=== PATIENT | male | born 1975 | race Caucasian/White ===

== ENCOUNTER 2017-01-30 09:40 | Emergency (ER) | payer OTHER ==
[~2017-01-30] VITALS: Ht 188 cm; Wt 95.3 kg
[2017-01-30 10:00] VITALS: BP 122/64
--- NOTE | 2017-01-30 10:39 | PHYS DOC ---
General Chief Complaint: SORE THROAT Stated Complaint: SORE THROAT, EAR PAIN Time Seen by MD: 10:12 Source: patient Exam Limitations: no limitations Problems: History of Present Illness Initial Comments Patient is a 41-year-old male who comes to the ED with sore throat. Patient states that he's had a severe sore throat for 2 days. He's had chills sweats and body aches and pain with swallowing no difficulty breathing no difficulty with swallowing. No known exposures with similar symptoms over-the- counter medications are not helping. She's been drinking well solid intake has been limited due to throat pain. Timing/Duration: gradual, other Severity: severe Location: throat Prearrival Treatment: over the counter meds Modifying Factors: worse with coughing, improves with other Associated Symptoms: fever, poor solids intake, sore throat Past Medical History Medical History: no pertinent history Surgical History: no surgical history Social History Smoker: non-smoker Alcohol: occasionally Drugs: none Constitutional: see HPI Ears: denies dizziness, denies pain Nose: denies clots, denies congestion Throat: see HPI, denies neck stiffness, denies difficulty with fluids Respiratory: denies cough, denies shortness of breath Cardiovascular: denies chest pain, denies palpitations Gastrointestinal: denies nausea, denies vomiting Physical Exam General Appearance: WD/WN, no apparent distress Eyes: bilateral eye normal inspection, bilateral eye PERRL, bilateral eye EOMI Nose: normal inspection Mouth/Throat: other (pharynx is beefy red with exudate airway is patent) Neck: lymphadenopathy (R), lymphadenopathy (L) Cardiovascular/Respiratory: normal peripheral pulses, normal breath sounds 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 Aggressive hydration with Gatorade or water. [id number] Tylenol and ibuprofen as needed. The penicillin injection he received in the emergency department should resolve your infection completely. Prescription: Lidocaine 2% viscous Follow-up at [place] in 5-7 days for recheck. Return to the ED with new or changing symptoms. NICHOLAS GARCIA DO Jan 30, 2017 10:39
[2017-01-30] MEDS ORDERED: LIDO:MAALOX 1:1 20 ML SINGLE DOSE PO ONE (11:15)
[2017-01-30] MEDS ORDERED: PENICILLIN G BENZATHINE LA 1,200,000 UNIT/2 ML DISP.SYRIN. IM ONE (11:15)
== END 2017-01-30 11:05 | disposition home or self-care (01) ==
LOC: EDBD 09:40 → ER 09:40
DX: J02.0 Streptococcal pharyngitis (principal)
CPT/HCPCS: 87880; 96372; 99283; J0561